=== PATIENT | male | born 1995 | race Caucasian/White ===

== ENCOUNTER 2017-12-23 13:46 | Emergency (ER) | payer SELFPAY ==
[~2017-12-23] VITALS: Ht 185.4 cm; Wt 83.9 kg
[2017-12-23 13:56] VITALS: BP_SYST 150
[2017-12-23] MEDS ORDERED: ACETAMINOPHEN 500 MG TABLET PO ONE (14:00)
[2017-12-23 14:42] VITALS: BP_SYST 140
== END 2017-12-23 14:42 | disposition home or self-care (01) ==
LOC: SED 13:46
DX: S13.9XXA Sprain of joints and ligaments of unspecified parts of neck, initial encounter (principal); S23.3XXA Sprain of ligaments of thoracic spine, initial encounter; M41.34 Thoracogenic scoliosis, thoracic region; V89.2XXA Person injured in unspecified motor-vehicle accident, traffic, initial encounter; Y93.89 Activity, other specified; Y92.410 Unspecified street and highway as the place of occurrence of the external cause; Y99.8 Other external cause status
CPT/HCPCS: 72040-TC; 72072-TC; 99283